=== PATIENT | male | born 1990 | race Caucasian/White ===

== ENCOUNTER 2017-03-16 18:14 | Emergency (ER) | payer SELFPAY ==
[~2017-03-16] VITALS: Ht 177.8 cm; Wt 70.0 kg
[~2017-03-16 18:14] MED LIST: PAXI20TA26 PO; TRAZ50TA78 PO
[2017-03-16 18:16] VITALS: BP 115/79; PULSE 84; RESP 16; TEMP 97.8; O2SAT 95; O2SAT 96
== END 2017-03-16 19:00 | disposition left against medical advice (07) ==
LOC: PHED 18:14
DX: R68.89 Other general symptoms and signs (principal)
CPT/HCPCS: 99281

== ENCOUNTER 2017-04-24 00:37 | Emergency (ER) | payer SELFPAY ==
[~2017-04-24] VITALS: Ht 180.3 cm; Wt 90.0 kg
[2017-04-24 00:39] VITALS: BP 152/95; PULSE 81; RESP 18; TEMP 98.2; O2SAT 99
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
[2017-04-24] MEDS ORDERED: IBUPROFEN 800 MG TAB PO ONE (01:00)
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
[2017-04-24] MEDS ORDERED: NAPR500 PO (01:57)
== END 2017-04-24 02:18 | disposition home or self-care (01) ==
LOC: NEPD 00:37
DX: S62.346A Nondisplaced fracture of base of fifth metacarpal bone, right hand, initial encounter for closed fracture (principal); Z72.0 Tobacco use; Z86.59 Personal history of other mental and behavioral disorders; Z87.19 Personal history of other diseases of the digestive system; W22.09XA Striking against other stationary object, initial encounter
CPT/HCPCS: 29125; 73130

== ENCOUNTER 2018-03-29 03:29 | Emergency (ER) | payer SELFPAY ==
[~2018-03-29] VITALS: Ht 177.8 cm; Wt 72.5 kg
[~2018-03-29 03:29] MED LIST changes: +NAPR500 PO; -PAXI20TA26 PO; -TRAZ50TA78 PO; +Z.0.NO CURRENT MEDS
[2018-03-29 03:34] VITALS: BP 126/72; PULSE 91; RESP 16; TEMP 99.3; O2SAT 96
[2018-03-29] MEDS ORDERED: BACT800T5 PO (03:57)
[2018-03-29] MEDS ORDERED: CLIN300C5 PO (03:57)
--- NOTE | 2018-03-29 03:59 | PD ---
HPI Chief Complaint: Skin Problem Time Seen by Provider: 03:55 Travel History International Travel<30 days: No Contact w/Intl Traveler<30days: No Traveled to known affect area: No History of Present Illness HPI 27-year-old male presents for evaluation of area of redness to the left arm. He reports that he recently relapsed on IV heroin. He reports for the past 2 weeks he has had some redness and pain at the site of the injection site. Pain is aching, mild, aggravated by palpation with no relieving factors. Denies any drainage. Denies any objective fevers but he has had occasional sweats. He reports that tomorrow he plans on going to rehab. He has no other complaints at this time. [facility] Past Medical History ADHD: Yes (BY HX) Autoimmune Disease: No Blood Disorders: No Anxiety: No Depression: No Cancer: No Cardiovascular Problems: No Diabetes: No Diminished Hearing: No Endocrine: No Genitourinary: No Hepatitis: Yes (C) Immune Disorder: No Musculoskeletal: No Neurologic: No Psychiatric: Yes (ADHD BY HX, AGGRESSION) Reproductive: No Respiratory: No Migraines: No Seizures: No Thyroid Disease: No Tetanus Vaccination: < 5 Years Past Surgical History Surgical History: No Previous Surgery AICD: No Appendectomy: No Arteriovenous Shunt: No Cholecystectomy: No Insulin Pump: No Joint Replacement: No Pacemaker: No Social History Alcohol Use: Yes Tobacco Use: Yes (1PPD) Substance Use: Yes (heroin, Cocaine) Allergies-Medications (Allergen,Severity, Reaction): Coded Allergies: cefepime (Unverified Allergy, Intermediate, RASH, 05/23/17) ceftaroline fosamil (Unverified Allergy, Intermediate, RASH, 05/23/17) Uncoded Allergies: CEFZOL (Allergy, Intermediate, UNKNOWN, 12/03/17) OPIATES (Adverse Reaction, Mild, 04/24/17) PT REQUESTS TO NOT HAVE OPIATES Reported Meds & Prescriptions Reported Meds & Active Scripts Active Naprosyn (Naproxen) 500 Mg Tab 500 Mg PO Q12HR PRN Reported No Current Meds (Miscellaneous Medication) Misc Review of Systems Except as stated in HPI: all other systems reviewed are Neg Physical Exam Narrative GENERAL: Well-developed well-nourished male no acute distress SKIN: Warm and dry. 2-3 cm area of erythema and induration to the left antecubital region without fluctuance. Needle track hatfield are noted. There is no drainage. HEAD: Atraumatic. Normocephalic. EYES: Pupils equal and round. No scleral icterus. No injection or drainage. ENT: No nasal bleeding or discharge. Mucous membranes pink and moist. NECK: Trachea midline. No JVD. CARDIOVASCULAR: Regular rate and rhythm. No murmur appreciated. RESPIRATORY: No accessory muscle use. Clear to auscultation. Breath sounds equal bilaterally. MUSCULOSKELETAL: No obvious deformities. Skin as noted above. NEUROLOGICAL: Awake and alert. No obvious cranial nerve deficits. Motor grossly within normal limits. Normal speech. Data Data Last Documented VS Vital Signs Date Time Temp Pulse Resp B/P (MAP) Pulse Ox O2 Delivery O2 Flow Rate FiO2 03/29/18 03:34 99.3 91 16 126/72 (90) 96 Orders Orders Clindamycin (Cleocin) (03/29/18 04:00) Sulfamet-Trimeth Ds 800-160 Mg (Bactrim (03/29/18 04:00) Ed Discharge Order (03/29/18 03:56) MDM Medical Decision Making Medical Screen Exam Complete: Yes Emergency Medical Condition: Yes Medical Record Reviewed: Yes Differential Diagnosis Cellulitis, abscess, lymphangitis Narrative Course Examination is consistent with cellulitis but there is no abscess formation. The patient will be started on clindamycin and Bactrim. Discussed signs and symptoms that would warrant returning to the emergency room. He is stable for discharge. Diagnosis Primary Impression: Cellulitis of left arm Additional Instructions: Medication as prescribed. Warm compresses several times a day 15 minutes at a time. Return for any new or worsening symptoms. Med/Other Pt SpecificInfo: Prescription(s) given Scripts Clindamycin (Clindamycin) 300 Mg Cap 300 MG PO TID for Infection for 10 Days, CAP 0 Refills Prov: Lester Galvin MD 03/29/18 Sulfamethoxazole-Trimethoprim (Bactrim DS) 800-160 Mg Tab 1 TAB PO BID for Infection, #20 TAB 0 Refills Prov: Lester Galvin MD 03/29/18 Disposition: 01 DISCHARGE HOME Condition: Stable Vladimir Arthur Mar 29, 2018 03:59
[2018-03-29] MEDS ORDERED: CLINDAMYCIN 150 MG CAP PO ONE (04:00)
[2018-03-29] MEDS ORDERED: SULFAMETHOXAZOLE-TRIMETHOPRIM DS 800-160 MG TAB PO ONE (04:00)
== END 2018-03-29 04:12 | disposition home or self-care (01) ==
LOC: NEPD 03:29
DX: L03.114 Cellulitis of left upper limb (principal); F14.90 Cocaine use, unspecified, uncomplicated; F11.90 Opioid use, unspecified, uncomplicated; F17.200 Nicotine dependence, unspecified, uncomplicated; F90.9 Attention-deficit hyperactivity disorder, unspecified type; Z86.19 Personal history of other infectious and parasitic diseases; Z88.8 Allergy status to other drugs, medicaments and biological substances
CPT/HCPCS: 99283

== ENCOUNTER 2018-08-09 15:11 | Inpatient (IN) ==
[2018-08-09] MEDS ORDERED: Piperacil/Tazo 4.5 GM Premix 4.5 GM/100 ML BAG IV.SIG ONE (18:08)
[2018-08-09] MEDS ORDERED: Acetaminophen 325 MG Tablet PO ONE (18:08)
[2018-08-09] MEDS ORDERED: Morphine Inj 4 MG, Morphine Inj 2 MG IV.PUSH ONE ×2 (18:10)
--- NOTE | 2018-08-09 18:12 | ED ---
HPI General Chief complaint: Skin/Abscess/Foreign Body Stated complaint: skin Time Seen by Provider: 08/09/18 17:55 Source: patient Mode of arrival: ambulatory Limitations: no limitations History of Present Illness HPI narrative: 27-year-old male with history of IV drug abuse here for evaluation of left arm pain and swelling. The patient reports recently injecting cocaine and heroin into this extremity and states that he missed his vein. Symptoms have been worsening over the last 4 days. Pain is severe, constant, worse with movements and palpation. No paresthesias. Triage vital signs show the patient is tachycardic and febrile. Related Data Home Medications Medication Instructions Recorded Confirmed No Known Home Medications 08/09/18 08/09/18 Allergies Allergy/AdvReac Type Severity Reaction Status Date / Time cefepime Allergy Intermediate RASH Verified 08/09/18 16:04 ceftaroline fosamil Allergy Intermediate RASH Verified 08/09/18 16:04 CEFZOL Allergy Intermediate Hives Uncoded 08/09/18 16:04 Review of Systems ROS: all other systems reviewed are negative [facility] Medical History Medical History Hepatitis-C (Acute) Social History Social History Substance History: Active Abuse Second Hand Smoke Exposure: Yes Smoking Status: Current some day smoker Tobacco Type: Cigarettes How Often Do You Have a Drink Containing Alcohol: Never Recent Travel in [facility] within the Last 8 Weeks: No Recent Out of Country Travel within the Last 8 Weeks: No Exam Narrative Exam Narrative: GENERAL: Well-developed, well-nourished, awake, alert, comfortable, no apparent distress. SKIN: Left forearm with moderate edema with overlying warmth and erythema with several scabs. The forearm is moderately tender. All compartments are supple. There is no crepitus. No red streaks. This area was evaluated using a bedside linear ultrasound probe by me and shows diffuse cobblestoning, no drainable fluid collections. There are scattered scabs throughout the patient' s entire body. HEAD: Atraumatic. Normocephalic. EYES: Pupils equal and round. No scleral icterus. No injection or drainage. ENT: Mucous membranes pink and dry. NECK: Trachea midline. No JVD. No nuchal rigidity. CARDIOVASCULAR: Tachycardic, rate 110, regular. Holosystolic murmur III/ present. RESPIRATORY: No accessory muscle use. Clear to auscultation. Breath sounds equal bilaterally. GASTROINTESTINAL: Abdomen soft, non-tender, nondistended. MUSCULOSKELETAL: Skin exam as above. The left upper extremity is neurovascularly intact. Normal range of motion in all joints and extremities. NEUROLOGICAL: Awake and alert. No obvious cranial nerve deficits. Motor grossly within normal limits. Normal speech. PSYCHIATRIC: Appropriate mood and affect; insight and judgment normal. Course Initial Documented Vital Signs Temperature 102.8 F H 08/09/18 16:01 Pulse Rate 93 H 08/09/18 16:01 Respiratory Rate 20 08/09/18 16:01 Blood Pressure 133/68 08/09/18 16:01 Pulse Oximetry 93 L 08/09/18 16:01 Last Documented Vital Signs Temperature 102.1 F H 08/09/18 16:03 Pulse Rate 86 08/09/18 16:03 Respiratory Rate 18 08/09/18 16:03 Blood Pressure 126/86 08/09/18 16:03 Pulse Oximetry 98 08/09/18 16:03 Medical Decision Making MDM Narrative Medical decision making narrative: Initial vital signs show the patient is tachycardic and febrile. He is normotensive. Sepsis protocol initiated. Procedure note: Bedside linear ultrasound: Using the linear ultrasound probe a bedside ultrasound was performed of the patient's left upper extremity and shows diffuse cobblestoning, no drainable fluid collections noted. Labs reviewed. Chest x-ray shows no acute cardiopulmonary disease. Left forearm x-ray shows no free air, no metallic foreign bodies. Patient was written for IV vancomycin and IV Zosyn. He has a harsh holosystolic murmur, and given history of IV drug abuse, could have endocarditis. He definitely has a significant area of left forearm cellulitis. A bedside ultrasound performed by ia does not show a drainable fluid collection at this time. He will be admitted for further treatment and evaluation of sepsis, cellulitis, r/o endocarditis. Case discussed with hospitalist Dr. Barone who will admit the patient to the hospitalist service. Medical Screen Exam Complete: Yes Emergency Medical Condition: Yes Differential Diagnosis Differential Diagnosis: Sepsis, bacteremia, cellulitis, abscess, necrotizing fasciitis, myositis, endocarditis, pneumonia Lab Data Result diagrams: 08/09/18 18:27 08/09/18 18:27 Lab Results 08/09/18 08/09/18 08/09/18 Range/Units 18:27 18:27 18:27 WBC 8.1 (4.0-11.0) th/mm3 RBC 4.43 L (4.50-5.90) mil/mm3 Hgb 13.7 (13.0-17.0) gm/dL Hct 38.5 L (39.0-51.0) % MCV 87.0 (80.0-100.0) fL MCH 30.9 (27.0-34.0) pg MCHC 35.5 (32.0-36.0) % RDW 13.1 (11.6-17.2) % Plt Count 114 L (150-450) th/mm3 MPV 10.2 (7.0-11.0) fL Neut % (Auto) 81.1 H (16.0-70.0) % Lymph % (Auto) 8.8 L (9.0-44.0) % Hoke % (Auto) 8.5 H (0.0-8.0) % Eos % (Auto) 1.3 (0.0-4.0) % Baso % (Auto) 0.3 (0.0-2.0) % Neut # (Auto) 6.5 (1.8-7.7) th/mm3 Lymph # (Auto) 0.7 L (1.0-4.8) th/mm3 Hoke # (Auto) 0.7 (0.0-0.9) th/mm3 Eos # (Auto) 0.1 (0.0-0.4) th/mm3 Baso # (Auto) 0.0 (0.0-0.2) th/mm3 WBC Differential . Differential Comment Auto diff final PT 11.4 (9.8-11.6) sec INR 1.1 Ratio APTT 39.0 H (23.4-31.7) sec Sodium 133 L (136-145) meq/L Potassium 4.1 (3.5-5.1) meq/L Chloride 97 L (98-107) meq/L Carbon Dioxide 28.4 (21.0-32.0) meq/L Anion Gap 8 (5-15) meq/L BUN 11 (7-18) mg/dL Creatinine 0.90 (0.60-1.30) mg/dL Estimated GFR Greater than 89 (>89) mL/min Random Glucose 119 H (74-106) mg/dL Lactic Acid (0.4-2.0) mmol/L Calcium 8.6 (8.5-10.1) mg/dL Magnesium 1.7 (1.5-2.5) mg/dL Total Bilirubin 1.6 H (0.2-1.0) mg/dL AST 47 H (15-37) U/L ALT 54 (12-78) U/L Alkaline Phosphatase 62 (45-117) U/L Total Creatine Kinase 358 H (39-308) U/L CK-MB (CK-2) 1.9 (0.5-3.6) ng/mL CK-MB (CK-2) % 0.5 (0.0-4.0) % Troponin I Less than 0.02 L (0.02-0.05) ng/mL Total Protein 7.1 (6.4-8.2) g/dL Albumin 3.1 L (3.4-5.0) g/dL 08/09/18 Range/Units 18:27 WBC (4.0-11.0) th/mm3 RBC (4.50-5.90) mil/mm3 Hgb (13.0-17.0) gm/dL Hct (39.0-51.0) % MCV (80.0-100.0) fL MCH (27.0-34.0) pg MCHC (32.0-36.0) % RDW (11.6-17.2) % Plt Count (150-450) th/mm3 MPV (7.0-11.0) fL Neut % (Auto) (16.0-70.0) % Lymph % (Auto) (9.0-44.0) % Hoke % (Auto) (0.0-8.0) % Eos % (Auto) (0.0-4.0) % Baso % (Auto) (0.0-2.0) % Neut # (Auto) (1.8-7.7) th/mm3 Lymph # (Auto) (1.0-4.8) th/mm3 Hoke # (Auto) (0.0-0.9) th/mm3 Eos # (Auto) (0.0-0.4) th/mm3 Baso # (Auto) (0.0-0.2) th/mm3 WBC Differential Differential Comment PT (9.8-11.6) sec INR Ratio APTT (23.4-31.7) sec Sodium (136-145) meq/L Potassium (3.5-5.1) meq/L Chloride (98-107) meq/L Carbon Dioxide (21.0-32.0) meq/L Anion Gap (5-15) meq/L BUN (7-18) mg/dL Creatinine (0.60-1.30) mg/dL Estimated GFR (>89) mL/min Random Glucose (74-106) mg/dL Lactic Acid 0.8 (0.4-2.0) mmol/L Calcium (8.5-10.1) mg/dL Magnesium (1.5-2.5) mg/dL Total Bilirubin (0.2-1.0) mg/dL AST (15-37) U/L ALT (12-78) U/L Alkaline Phosphatase (45-117) U/L Total Creatine Kinase (39-308) U/L CK-MB (CK-2) (0.5-3.6) ng/mL CK-MB (CK-2) % (0.0-4.0) % Troponin I (0.02-0.05) ng/mL Total Protein (6.4-8.2) g/dL Albumin (3.4-5.0) g/dL Imaging Data Radiologist's impression: Chest X-Ray 08/09/18 18:08 CONCLUSION: No acute cardiopulmonary disease. There is no evidence of pneumonia. Forearm X-Ray 08/09/18 18:12 CONCLUSION: No acute bony abnormality. Needle or other metallic fragment present in distal forearm. Discharge Plan Discharge Disposition Patient Disposition: 30 Still Patient Discharge Condition Condition: Stable Discharge Details Diagnosis: Sepsis, Cellulitis of forearm, left, Polysubstance abuse Physicians Team ED Provider: Ismael Castillo Primary Care Provider: Primary Care VikkiiShanta Rxs /Orders / Referrals /Forms Prescriptions: No Action No Known Home Medications RF: 0 Status ED Status: With Doctor
[2018-08-09] MEDS ORDERED: Sod Chloride 0.9% Inj 1,000 ML IV.SIG SCH ×2 (18:15→18:30)
[2018-08-09] MEDS ORDERED: Sod Chloride 0.9% Inj 800 ML IV.SIG SCH (18:15)
[2018-08-09] MEDS ORDERED: Vancomycin Inj 1 GM/200 ML PIGGYBACK IV.SIG SCH (19:00)
--- NOTE | 2018-08-09 19:08 | XR ---
EXAM DATE: 08/09/2018 6:41 PM EDT AGE/SEX: 27 years / Male INDICATIONS: Short of breath and fever. CLINICAL DATA: This is the patient's initial encounter. Patient reports that signs and symptoms have been present for 4 - 6 days and indicates a pain score of 0/10. MEDICAL/SURGICAL HISTORY: None. None. COMPARISON: None.. FINDINGS: A single AP view of the chest demonstrates the lungs to be symmetrically aerated without evidence of mass, infiltrate or effusion. The cardiomediastinal contours are unremarkable. Osseous structures a re intact. CONCLUSION: No acute cardiopulmonary disease. There is no evidence of pneumonia. Electronically signed by: Avtar Talbot MD 08/09/2018 7:07 PM EDT
[2018-08-09 19:12] LABS: Baso % (Auto) 0.3 % (0.0-2.0); Eos # (Auto) 0.1 th/mm3 (0.0-0.4); Eos % (Auto) 1.3 % (0.0-4.0); Hematocrit 38.5 % (39.0-51.0); Hemoglobin 13.7 gm/dL (13.0-17.0); Lymph # (Auto) 0.7 th/mm3 (1.0-4.8); Lymph % (Auto) 8.8 % (9.0-44.0); Mean Corpuscular HGB Conc 35.5 % (32.0-36.0); Mean Corpuscular Hemoglobin 30.9 pg (27.0-34.0); Mean Platelet Volume 10.2 fL (7.0-11.0); Mono # (Auto) 0.7 th/mm3 (0.0-0.9); Mono % (Auto) 8.5 % (0.0-8.0); Neut # (Auto) 6.5 th/mm3 (1.8-7.7); Neut % (Auto) 81.1 % (16.0-70.0); Platelet Count 114 th/mm3 (150-450); Red Blood Count 4.43 mil/mm3 (4.50-5.90); Red Cell Distribution Width 13.1 % (11.6-17.2); White Blood Count 8.1 th/mm3 (4.0-11.0)
--- NOTE | 2018-08-09 19:17 | XR ---
EXAM DATE: 08/09/2018 6:46 PM EDT AGE/SEX: 27 years / Male INDICATIONS: Inflammation on mid forearm. CLINICAL DATA: This is the patient's initial encounter. Patient reports that signs and symptoms have been present for 1 day and indicates a pain score of 5/10. MEDICAL/SURGICAL HISTORY: None. None. COMPARISON: No prior exams available for comparison. FINDINGS: No acute bony abnormality. Needle fragment present in soft tissues of distal forearm. Mild proximal f orearm swelling. CONCLUSION: No acute bony abnormality. Needle or other metallic fragment present in distal forearm. Electronically signed by: Suhail Bustillos MD 08/09/2018 7:16 PM EDT
[2018-08-09 19:19] LABS: INR 1.1 Ratio; Prothrombin Time 11.4 sec (9.8-11.6)
[2018-08-09 19:21] LABS: Alanine Aminotransferase 54 U/L (12-78); Albumin 3.1 g/dL (3.4-5.0); Anion Gap 8 meq/L (5-15); Aspartate Aminotransferase 47 U/L (15-37); Blood Urea Nitrogen 11 mg/dL (7-18); Calcium 8.6 mg/dL (8.5-10.1); Carbon Dioxide 28.4 meq/L (21.0-32.0); Chloride 97 meq/L (98-107); Glomerular Filtration Rate Greater Than 89 mL/min (>89); Glucose,Random 119 mg/dL (74-106); Magnesium 1.7 mg/dL (1.5-2.5); Potassium 4.1 meq/L (3.5-5.1); Sodium 133 meq/L (136-145)
[2018-08-09 19:25] LABS: Alkaline Phosphatase 62 U/L (45-117); Creatine Kinase 358 U/L (39-308); Total Protein 7.1 g/dL (6.4-8.2)
[2018-08-09 19:38] LABS: CKMB Percent 0.5 % (0.0-4.0); Creatine Kinase MB 1.9 ng/mL (0.5-3.6)
[2018-08-09] MEDS ORDERED: Vancomycin Consult Pharmacy OTHER PRN (19:39)
[2018-08-09] MEDS ORDERED: Acetaminophen 325 MG Tablet PO PRN (19:41)
[2018-08-09] MEDS ORDERED: Bisacodyl 10 MG Supp RECTAL PRN (19:41)
--- NOTE | 2018-08-09 19:43 | P.HPIM ---
History of Present Illness Primary Care Physician: No Primary Care Physician History of Present Illness: This is a 27-year-old male with a PMH of Hepatitis C, Tobacco Abuse and IVDU who presented to the ER with complaints of left arm pain and swelling x4 days. States he injected Cocaine and Heroin to [facility] 4 days ago and thinks he missed the vein. Notes progressive pain, redness and swelling. Pain is constant, moderate to severe, 8/10, non-radiating. Also notes fever/chills and c/o chest pain-substernal, sharp, non-radiating. On arrival, 33/68, HR 93, O2 RA, Temp 102.8. CBC essentially unremarkable except for platelets 114. INR 1.1. Chemistry unremarkable. Lactic acid 0.8. Troponin negative. CPK 358. CXR with no acute findings. Forearm X-ray no acute finding, no needle or metallic fragment present. S/p Vanc/Zosyn in ER. - Diagnosis (1) Cellulitis of forearm, left (2) Chest pain (3) IVDU (intravenous drug user) (4) Rhabdomyolysis (5) Thrombocytopenia Review of Systems PAST FAMILY HISTORY: Reviewed. No h/o DM or CAD All other systems reviewed negative except as stated [facility] - History History Provided By: Patient - Medical History Medical History: Medical History (Last Updated 08/09/18 @ 18:44 by Jose Antonio Carpenter) Hepatitis-C - Tobacco History Second Hand Smoke Exposure: Yes Tobacco Use In Past 30 Days: Yes Smoking Status: Current some day smoker Tobacco Type: Cigarettes - Alcohol History How Often Do You Have a Drink Containing Alcohol: Never - Substance Use History Substance History: Active Abuse - Substance Use Type Crack/Cocaine Status: Active Route Used: By Mouth Reason for Use: Calm Down - Travel History Recent Travel in the [place] Within the Last 8 Weeks: No Recent Travel Out of the Country Within the Last 8 Weeks: No - Immunization History Tetanus Immunization: Unsure Medications and Allergies Active Medications: Active Medications Sodium Chloride (Ns Inj) 1,000 mls @ 0 mls/hr IV.SIG .Q0M [facility] Last Admin: 08/09/18 18:21 Dose: 999 mls/hr Sodium Chloride (Ns Inj) 800 mls @ 0 mls/hr IV.SIG .Q0M [facility] Last Infusion: 08/09/18 19:39 Dose: Infused Vancomycin/Sodium Chloride (Vancomycin Inj) 1 gm in 200 mls @ 200 mls/hr IV.SIG REWRITER [facility] Allergies Allergy/AdvReac Type Severity Reaction Status Date / Time cefepime Allergy Intermediate RASH Verified 08/09/18 16:04 ceftaroline fosamil Allergy Intermediate RASH Verified 08/09/18 16:04 CEFZOL Allergy Intermediate Hives Uncoded 08/09/18 16:04 Home Medications Medication Instructions Recorded Confirmed Type No Known Home Medications 08/09/18 08/09/18 History Exam Vital signs: Vital Signs 08/09/18 16:01 08/09/18 16:03 Temperature 102.8 F H 102.1 F H Pulse Rate 93 H 86 Respiratory Rate 20 18 Blood Pressure 133/68 126/86 Pulse Oximetry 93 L 98 Intake & Output 08/09/18 08/09/18 08/10/18 06:59 18:59 06:59 Intake Total 900 / 900 Balance 900 / 900 Weight 77.111 kg Intake: IV 900 / 900 Zosyn 4.5 GM Premix 4.5 gm In 100 / 100 100 ml @ 200 mls/hr IV.SIG ONCE ONE Rx#:[id number] NS Inj 800 ML @ Wide Open IV. 800 / 800 SIG .Q0M [facility] Rx#:[id number] Narrative: PE: GENERAL: Young white male in no acute distress. SKIN: Focused skin assessment warm and dry. HEENT: PERRLA, EOMI. No scleral icterus or conjunctival pallor. No lid lag or facial droop. CARDIOVASCULAR: Regular rate and rhythm. +holosystolic murmur. No chest tenderness to palpation. RESPIRATORY: No obvious rhonchi or wheezing. Clear to auscultation. Breath sounds equal bilaterally. GASTROINTESTINAL: Abdomen soft, non-tender, nondistended. BS normal. MUSCULOSKELETAL: Extremities without clubbing, cyanosis, or edema. No obvious deformities. Left forearm w/ multiple scabs, +erythema/edema, +tenderness to palpation. NEUROLOGICAL: Awake, alert and oriented x4. No focal neurologic deficits. Moving both upper and lower extremities spontaneously. PSYCHIATRIC: Appropriate mood and affect. Insight and judgment normal. Results - Labs CBC & Chem 7: 08/09/18 18:27 08/09/18 18:27 Labs: Short CBC 08/09/18 Range/Units 18:27 WBC 8.1 (4.0-11.0) th/mm3 Hgb 13.7 (13.0-17.0) gm/dL Hct 38.5 L (39.0-51.0) % Plt Count 114 L (150-450) th/mm3 BMP 08/09/18 18:27 Sodium 133 L Potassium 4.1 Chloride 97 L Carbon Dioxide 28.4 BUN 11 Creatinine 0.90 Calcium 8.6 Cardiac Enzymes 08/09/18 Range/Units 18:27 Total Creatine Kinase 358 H (39-308) U/L CK-MB (CK-2) 1.9 (0.5-3.6) ng/mL Troponin I Less than 0.02 L (0.02-0.05) ng/mL Liver Function 08/09/18 Range/Units 18:27 Total Bilirubin 1.6 H (0.2-1.0) mg/dL AST 47 H (15-37) U/L ALT 54 (12-78) U/L Alkaline Phosphatase 62 (45-117) U/L Albumin 3.1 L (3.4-5.0) g/dL - Imaging Impressions Chest X-Ray 08/09/18 18:08 CONCLUSION: No acute cardiopulmonary disease. There is no evidence of pneumonia. Forearm X-Ray 08/09/18 18:12 CONCLUSION: No acute bony abnormality. Needle or other metallic fragment present in distal forearm. Caprini VTE Risk Assessment Caprini VTE Risk Assessment: No/Low Risk (score <= 1) Caprini Risk Assessment Model: Point Value = 1 Point Value = 2 Point Value = 3 Point Value = 5 Age 41-60 Minor surgery BMI > 25 kg/m2 Swollen legs Varicose veins or History of unexplained or recurrent spontaneous Oral contraceptives or hormone replacement Sepsis (< 1 month) Serious lung disease, including pneumonia (< 1 month) Abnormal pulmonary function Acute myocardial infarction Congestive heart failure (< 1 month) History of inflammatory bowel disease Medical patient at bed rest Age 61-74 Arthroscopic surgery Major open surgery (> 45 min) Laparoscopic surgery (> 45 min) Malignancy Confined to bed (> 72 hours) Immobilizing plaster cast Central venous access Age >= 75 History of VTE Family history of VTE Factor V Leiden Prothrombin [id number] Lupus anticoagulant Anticardiolipin antibodies Elevated serum homocysteine Heparin-induced thrombocytopenia Other congenital or acquired thrombophilia Stroke (< 1 month) Elective arthroplasty Hip, pelvis, or leg fracture Acute spinal cord injury (< 1 month) Prophylaxis Regimen: Total Risk Factor Score Risk Level Prophylaxis Regimen 0-1 Low Early ambulation 2 Moderate Order ONE of the following: *Sequential Compression Device (SCD) *Heparin 5000 units SQ BID 3-4 Higher Order ONE of the following medications: *Heparin 5000 units SQ TID *Enoxaparin/Lovenox 40 mg SQ daily (WT < 150 kg, CrCl > 30 mL/min) *Enoxaparin/Lovenox 30 mg SQ daily (WT < 150 kg, CrCl > 10-29 mL/min) *Enoxaparin/Lovenox 30 mg SQ BID (WT < 150 kg, CrCl > 30 mL/min) AND/OR *Sequential Compression Device (SCD) 5 or more Highest Order ONE of the following medications: *Heparin 5000 units SQ TID (Preferred with Epidurals) *Enoxaparin/Lovenox 40 mg SQ daily (WT < 150 kg, CrCl > 30 mL/min) *Enoxaparin/Lovenox 30 mg SQ daily (WT < 150 kg, CrCl > 10-29 mL/min) *Enoxaparin/Lovenox 30 mg SQ BID (WT < 150 kg, CrCl > 30 mL/min) AND *Sequential Compression Device (SCD) Assessment and Plan - Assessment (1) Cellulitis of forearm, left Code(s): L03.114 - Cellulitis of left upper limb Status: Acute (2) Chest pain Code(s): R07.9 - Chest pain, unspecified Status: Acute (3) IVDU (intravenous drug user) Code(s): F19.90 - Other psychoactive substance use, unspecified, uncomplicated Status: Acute (4) Rhabdomyolysis Code(s): M62.82 - Rhabdomyolysis Status: Acute (5) Thrombocytopenia Code(s): D69.6 - Thrombocytopenia, unspecified Status: Acute - Plan A/P: 1. Cellulitis: LUE. S/p IVDU w/ injection of Cocaine/Heroin 4 days ago, worsening pain/swelling. Forearm X-ray w/ no acute findings, images reviewed. S/p Vanc/Zosyn in ER, will continue w/ IV Abx, follow up cultures. 2. Chest Pain: h/o IVDU, +murmur on exam w/ c/o chest pain, concern for endocarditis. Initial trop negative, will check serial cardiac enzymes to eval for ischemia/strain. Check Echo to eval for vegetations. 3. Rhabdo: CPK 358, likely related to recent cocaine use, IVF for hydration, check repeat CPK for trend. 4. Thrombocytopenia: Platelets 114, previously normal on 02/13/2008. Monitor closely for bleeding, repeat labs in am. 5. IVDU: Ongoing, w/ Cocaine/Heroin, pt counselled, Ativan prn for withdrawal/ agitation. 6. DVT Prophylaxis: SCD/Teds 7. Social work for d/c planning as needed. 8. Case discussed w/ ER physician at length, labs/records/imaging reviewed by me.
[2018-08-09] MEDS ORDERED: Vancomycin Inj 1,000 MG in Sodium Chlor 0.9% Inj 250 ML IV.SIG ONE (20:00)
[2018-08-09] MEDS: Senna/Docusate Sodium 8.6/50 MG Tablet PO SCH (22:13)
[2018-08-09 22:16] LABS: Bilirubin,Urine Negative (Negative); Clarity,Urine Clear (Clear); Color,Urine Yellow (Yellw/Straw); Glucose,Urine (UA) Negative (Negative); Leukocyte Esterase,Urine Trace (Negative); Mucus,Urine Few /lpf (Occasional); Nitrite,Urine Negative (Negative); Specific Gravity,Urine 1.002 (1.002-1.035); Urobilinogen,Urine 4 or Greater mg/dL (Less than 2)
[2018-08-09] MEDS: Sod Chloride 0.9% Inj 1,000 ML IV.CONT SCH (22:54)
[2018-08-10] MEDS: Piperacil/Tazo 4.5 GM Premix 4.5 GM/100 ML BAG IV.SIG SCH ×4 (01:07→17:51)
[2018-08-10] MEDS: Vancomycin Inj 1,250 MG in Sodium Chlor 0.9% Inj 250 ML IV.SIG SCH ×3 (05:47→19:52)
[2018-08-10] MEDS: Sod Chloride 0.9% Inj 1,000 ML IV.CONT SCH ×2 (05:50→19:56)
[2018-08-10 07:05] LABS: Alanine Aminotransferase 40 U/L (12-78); Albumin 2.3 g/dL (3.4-5.0); Alkaline Phosphatase 50 U/L (45-117); Anion Gap 7 meq/L (5-15); Aspartate Aminotransferase 37 U/L (15-37); Blood Urea Nitrogen 8 mg/dL (7-18); Calcium 7.6 mg/dL (8.5-10.1); Carbon Dioxide 25.7 meq/L (21.0-32.0); Chloride 105 meq/L (98-107); Creatine Kinase 191 U/L (39-308); Glomerular Filtration Rate Greater Than 89 mL/min (>89); Glucose,Random 97 mg/dL (74-106); Potassium 3.8 meq/L (3.5-5.1); Sodium 138 meq/L (136-145); Total Protein 5.7 g/dL (6.4-8.2)
[2018-08-10] MEDS: Senna/Docusate Sodium 8.6/50 MG Tablet PO SCH ×2 (09:20→20:29)
[2018-08-10] MEDS ORDERED: Morphine Sulfate Inj 2 MG/ML Vial IV.PUSH PRN (11:42)
[2018-08-10] MEDS ORDERED: Naloxone Inj 0.4 MG/ML Vial IV.PUSH PRN (11:42)
[2018-08-10] MEDS ORDERED: Morphine Inj 4 MG/ML Vial IV.PUSH PRN ×2 (11:42)
[2018-08-10] MEDS ORDERED: Vancomycin Consult Pharmacy 1 EACH OTHER SCH (11:45)
--- NOTE | 2018-08-10 11:45 | P.PNIM ---
Subjective Interval history: This is a 27-year-old male with a PMH of Hepatitis C, Tobacco Abuse and IVDU who presented to the ER with complaints of left arm pain and swelling x4 days. States he injected Cocaine and Heroin to [facility] 4 days ago and thinks he missed the vein. Notes progressive pain, redness and swelling. Pain is constant, moderate to severe, 8/10, non-radiating. Also notes fever/chills and c/o chest pain-substernal, sharp, non-radiating. On arrival, 33/68, HR 93, O2 RA, Temp 102.8. CBC essentially unremarkable except for platelets 114. INR 1.1. Chemistry unremarkable. Lactic acid 0.8. Troponin negative. CPK 358. CXR with no acute findings. Forearm X-ray no acute finding, no needle or metallic fragment present. S/p Vanc/Zosyn in ER. 112 COMPLAINS OF PAIN ALL OVER DW RN AND PT AND CM NEEDS ECHO AM LABS Adjust pain medications Pharmacy to help regarding the vancomycin dosing Echo is pending Pain control and withdrawal medication Physical Exam Vital signs: Vital Signs 08/09/18 16:01 08/09/18 16:03 08/09/18 19:00 Temperature 102.8 F H 102.1 F H Pulse Rate 93 H 86 68 Respiratory Rate 20 18 16 Blood Pressure 133/68 126/86 104/59 L Pulse Oximetry 93 L 98 98 08/09/18 20:50 08/09/18 21:55 08/09/18 23:24 Temperature 98.9 F 99.5 F Pulse Rate 68 70 71 Respiratory Rate 18 18 14 Blood Pressure 101/52 L 94/49 L 101/51 L Pulse Oximetry 98 100 98 08/10/18 04:00 08/10/18 08:00 08/10/18 09:47 Temperature 100.7 F H 99.0 F Pulse Rate 75 68 63 Respiratory Rate 16 16 18 Blood Pressure 99/51 L 102/51 L 102/54 L Pulse Oximetry 95 97 Intake & Output 08/09/18 08/10/18 08/10/18 18:59 06:59 18:59 Intake Total 4350 / 4350 262.5 / 262.5 Balance 4350 / 4350 262.5 / 262.5 Weight 77.111 kg 77.111 kg Intake: IV 4350 / 4350 262.5 / 262.5 NS Inj 1,000 ML @ 100 mls/hr IV 1000 / 1000 .CONT .Q10H [facility] Rx#:[id number] Zosyn 4.5 GM Premix 4.5 gm In 300 / 300 100 ml @ 200 mls/hr IV.SIG Q6H [facility] Rx#:[id number] NS Inj 1,000 ML @ Wide Open IV. 2800 / 2800 SIG .Q0M [facility] Rx#:[id number] Vancomycin Inj 1,000 MG In NS 250 / 250 Inj 250 ML @ 250 mls/hr IV.SIG ONCE ONE Rx#:[id number] Vancomycin Inj 1,250 MG In NS 262.5 / 262.5 Inj 250 ML @ 250 mls/hr IV.SIG Q8H [facility] Rx#:[id number] Other: Date of Last Bowel Movement 08/08/18 Weight On Admission 77.111 kg Narrative: PE: GENERAL: Young white male in no acute distress. SKIN: Focused skin assessment warm and dry. HEENT: PERRLA, EOMI. No scleral icterus or conjunctival pallor. No lid lag or facial droop. CARDIOVASCULAR: Regular rate and rhythm. +holosystolic murmur. No chest tenderness to palpation. RESPIRATORY: No obvious rhonchi or wheezing. Clear to auscultation. Breath sounds equal bilaterally. GASTROINTESTINAL: Abdomen soft, non-tender, nondistended. BS normal. MUSCULOSKELETAL: Extremities without clubbing, cyanosis, or edema. No obvious deformities. Left forearm w/ multiple scabs, +erythema/edema, +tenderness to palpation. NEUROLOGICAL: Awake, alert and oriented x4. No focal neurologic deficits. Moving both upper and lower extremities spontaneously. PSYCHIATRIC: Appropriate mood and affect. Insight and judgment normal. Results - Labs CBC & Chem 7: 08/09/18 18:27 08/10/18 06:22 Laboratory Results - last 24 hr 08/09/18 08/09/18 08/09/18 18:27 18:27 18:27 WBC 8.1 RBC 4.43 L Hgb 13.7 Hct 38.5 L MCV 87.0 MCH 30.9 MCHC 35.5 RDW 13.1 Plt Count 114 L MPV 10.2 Neut % (Auto) 81.1 H Lymph % (Auto) 8.8 L Drew % (Auto) 8.5 H Eos % (Auto) 1.3 Baso % (Auto) 0.3 Neut # (Auto) 6.5 Lymph # (Auto) 0.7 L Drew # (Auto) 0.7 Eos # (Auto) 0.1 Baso # (Auto) 0.0 WBC Differential . Differential Comment Auto diff final PT 11.4 INR 1.1 APTT 39.0 H Sodium 133 L Potassium 4.1 Chloride 97 L Carbon Dioxide 28.4 Anion Gap 8 BUN 11 Creatinine 0.90 Estimated GFR Greater than 89 Random Glucose 119 H Lactic Acid Calcium 8.6 Magnesium 1.7 Total Bilirubin 1.6 H AST 47 H ALT 54 Alkaline Phosphatase 62 Total Creatine Kinase 358 H CK-MB (CK-2) 1.9 CK-MB (CK-2) % 0.5 Troponin I Less than 0.02 L Total Protein 7.1 Albumin 3.1 L Urine Color Urine Clarity Urine pH Ur Specific [place] Urine Protein Urine Glucose (UA) Urine Ketones Urine Occult Blood Urine Nitrate Urine Bilirubin Urine Urobilinogen Ur Leukocyte Esterase Urine RBC Urine WBC Urine Mucus Micro UA Comment Ur Microscopic Review Urine Culture Comments 08/09/18 08/09/18 08/10/18 18:27 21:50 01:15 WBC RBC Hgb Hct MCV MCH MCHC RDW Plt Count MPV Neut % (Auto) Lymph % (Auto) Drew % (Auto) Eos % (Auto) Baso % (Auto) Neut # (Auto) Lymph # (Auto) Drew # (Auto) Eos # (Auto) Baso # (Auto) WBC Differential Differential Comment PT INR APTT Sodium Potassium Chloride Carbon Dioxide Anion Gap BUN Creatinine Estimated GFR Random Glucose Lactic Acid 0.8 Calcium Magnesium Total Bilirubin AST ALT Alkaline Phosphatase Total Creatine Kinase CK-MB (CK-2) CK-MB (CK-2) % Troponin I Less than 0.02 L Total Protein Albumin Urine Color Yellow Urine Clarity Clear Urine pH 6.0 Ur Specific [place] 1.002 Urine Protein Negative Urine Glucose (UA) Negative Urine Ketones Negative Urine Occult Blood Negative Urine Nitrate Negative Urine Bilirubin Negative Urine Urobilinogen 4 or greater Ur Leukocyte Esterase Trace H Urine RBC Less than 1 Urine WBC 1 Urine Mucus Few H Micro UA Comment Culture not ind Ur Microscopic Review Not Reportable Urine Culture Comments Culture not ind 08/10/18 06:22 WBC RBC Hgb Hct MCV MCH MCHC RDW Plt Count MPV Neut % (Auto) Lymph % (Auto) Drew % (Auto) Eos % (Auto) Baso % (Auto) Neut # (Auto) Lymph # (Auto) Drew # (Auto) Eos # (Auto) Baso # (Auto) WBC Differential Differential Comment PT INR APTT Sodium 138 Potassium 3.8 Chloride 105 D Carbon Dioxide 25.7 Anion Gap 7 BUN 8 Creatinine 0.77 Estimated GFR Greater than 89 Random Glucose 97 Lactic Acid Calcium 7.6 L D Magnesium Total Bilirubin 1.1 H AST 37 ALT 40 Alkaline Phosphatase 50 Total Creatine Kinase 191 CK-MB (CK-2) CK-MB (CK-2) % Troponin I Less than 0.02 L Total Protein 5.7 L D Albumin 2.3 L D Urine Color Urine Clarity Urine pH Ur Specific [place] Urine Protein Urine Glucose (UA) Urine Ketones Urine Occult Blood Urine Nitrate Urine Bilirubin Urine Urobilinogen Ur Leukocyte Esterase Urine RBC Urine WBC Urine Mucus Micro UA Comment Ur Microscopic Review Urine Culture Comments Microbiology 08/09/18 18:27 Blood - Peripheral Aerobic Blood Culture - Preliminary No growth in 1 day 08/09/18 18:27 Blood - Peripheral Anaerobic Blood Culture - Preliminary No growth in 1 day 08/09/18 18:27 Blood - Peripheral Aerobic Blood Culture - Preliminary No growth in 1 day 08/09/18 18:27 Blood - Peripheral Anaerobic Blood Culture - Preliminary No growth in 1 day - Imaging Impressions Chest X-Ray 08/09/18 18:08 CONCLUSION: No acute cardiopulmonary disease. There is no evidence of pneumonia. Forearm X-Ray 08/09/18 18:12 CONCLUSION: No acute bony abnormality. Needle or other metallic fragment present in distal forearm. Assessment and Plan - Assessment (1) Cellulitis of forearm, left Code(s): L03.114 - Cellulitis of left upper limb Status: Acute (2) Chest pain Code(s): R07.9 - Chest pain, unspecified Status: Acute (3) IVDU (intravenous drug user) Code(s): F19.90 - Other psychoactive substance use, unspecified, uncomplicated Status: Acute (4) Rhabdomyolysis Code(s): M62.82 - Rhabdomyolysis Status: Acute (5) Thrombocytopenia Code(s): D69.6 - Thrombocytopenia, unspecified Status: Acute - Plan 1. Cellulitis: LUE. S/p IVDU w/ injection of Cocaine/Heroin 4 days ago, worsening pain/swelling. Forearm X-ray w/ no acute findings, images reviewed. S/p Vanc/Zosyn in ER, will continue w/ IV Abx, follow up cultures. 2. Chest Pain: h/o IVDU, +murmur on exam w/ c/o chest pain, concern for endocarditis. Initial trop negative, will check serial cardiac enzymes to eval for ischemia/strain. Check Echo to eval for vegetations. 3. Rhabdo: CPK 358, likely related to recent cocaine use, IVF for hydration, check repeat CPK for trend. 4. Thrombocytopenia: Platelets 114, previously normal on 02/13/2008. Monitor closely for bleeding, repeat labs in am. 5. IVDU: Ongoing, w/ Cocaine/Heroin, pt counselled, Ativan prn for withdrawal/ agitation. 6. DVT Prophylaxis: SCD/Teds Increased pain control Continue on Ativan and Percocets and morphine for pain Await echocardiogram Code Status: FULL CODE Discussed Condition With: RN AND PT AND CM Discharge Planning: WILL MAKE A FULL ADMIT
--- NOTE | 2018-08-10 17:22 | ECHRPT ---
Indication: SEPSIS ENDOCARDITIS CONCLUSIONS The left ventricular systolic function is normal with an estimated ejection fraction in the range of 55-60%. Trace mitral valve regurgitation. Mild pulmonary valve regurgitation. BP: / HR: Rhythm: MEASUREMENTS (Male / Female) Normal Values Technical Quality: 2D ECHO LV Diastolic Diameter PLAX 4.8 cm 4.2 - 5.9 / 3.9 - 5.3 cm LV Systolic Diameter PLAX 3.5 cm IVS Diastolic Thickness 1.1 cm 0.6 - 1.0 / 0.6 - 0.9 cm LVPW Diastolic Thickness 0.7 cm 0.6 - 1.0 / 0.6 - 0.9 cm LV Relative Wall Thickness 0.4 RV Internal Dim ED PLAX 2.5 cm LA Systolic Diameter LX 4.1 cm 3.0 - 4.0 / 2.7 - 3.8 cm DOPPLER AV Peak Velocity 163.0 cm/s AV Peak Gradient 10.6 mmHg LVOT Peak Velocity 116.0 cm/s LVOT Peak Gradient 5.4 mmHg Mitral E Point Velocity 98.1 cm/s Mitral A Point Velocity 67.3 cm/s Mitral E to A Ratio 1.5 TR Peak Velocity 144.0 cm/s TR Peak Gradient 8.3 mmHg Right Atrial Pressure 5.0 mmHg Pulmonary Artery Systolic Pressu 13.3 mmHg Right Ventricular Systolic Press 13.3 mmHg FINDINGS LEFT VENTRICLE Normal left ventricular size. Wall thickness is normal. The left ventricular systolic function is normal with an estimated ejection fraction in the range of 55-60%. RIGHT VENTRICLE Normal right ventricular size and systolic function. LEFT ATRIUM The left atrial size is mildly dilated. RIGHT ATRIUM The right atrial size is normal. ATRIAL SEPTUM Atrial septal aneurysm is present (benign finding). No atrial level shunt is demonstrated by color flow Doppler interrogation. AORTA The aortic root and proximal ascending aorta are normal in size on limited imaging. MITRAL VALVE Structurally normal mitral valve. No mitral valve stenosis. Trace mitral valve regurgitation. AORTIC VALVE Trileaflet aortic valve. No aortic valve stenosis or regurgitation. TRICUSPID VALVE Structurally normal tricuspid valve. No tricuspid valve stenosis or regurgitation. PULMONARY VALVE Mild pulmonary valve regurgitation. VESSELS The inferior vena cava is normal in size. PERICARDIUM No pericardial effusion. Julio Cesar Marina DO (Electronically Signed) Final Date:10 August 2018 17:21
--- NOTE | 2018-08-10 19:32 | ECG ---
Date Performed: 08/09/2018 Time Performed: 19:09:16 PTAGE: 27 years EKG: Sinus rhythm [place] Nonspecific intraventricular conduction delay BORDERLINE ECG NO PREVIOUS TRACING DOCTOR: Chavez Oviedo Interpretating Date/Time 08/10/2018 19:31:22
--- NOTE | 2018-08-10 19:33 | ECG ---
Date Performed: 08/10/2018 Time Performed: 01:19:14 PTAGE: 27 years EKG: Sinus rhythm Slight Nonspecific intraventricular conduction delay ABNORMAL ECG PREVIOUS TRACING :08/09/2018 @19.09 Since the previous tracing, no significant change noted DOCTOR: Chavez Oviedo Interpretating Date/Time 08/10/2018 19:32:44
--- NOTE | 2018-08-10 19:35 | ECG ---
Date Performed: 08/10/2018 Time Performed: 05:57:04 PTAGE: 27 years EKG: Normal Sinus Rhthm slight Nonspecific intraventricular conduction delay PREVIOUS TRACING :08/10/2018 @01.19 Since the previous tracing, no significant change note d DOCTOR: Chavez Oviedo Interpretating Date/Time 08/10/2018 19:34:16
[2018-08-10] MEDS ORDERED: Sodium Chloride 0.9% 2 ML Flush PRN IV.FLUSH (23:56)
[2018-08-11] MEDS: Piperacil/Tazo 4.5 GM Premix 4.5 GM/100 ML BAG IV.SIG SCH ×5 (00:08→23:11)
[2018-08-11] MEDS: Sod Chloride 0.9% Inj 1,000 ML IV.CONT SCH ×3 (01:52→23:11)
[2018-08-11] MEDS ORDERED: Pharmacy Ordered Lab Info OTHER ONE (03:45)
[2018-08-11] MEDS: Vancomycin Inj 1,250 MG in Sodium Chlor 0.9% Inj 250 ML IV.SIG SCH ×3 (04:54→19:21)
[2018-08-11] MEDS: Senna/Docusate Sodium 8.6/50 MG Tablet PO SCH ×2 (10:31→20:00)
[2018-08-11] MEDS: Sodium Chloride 0.9% 2 ML Flush BID IV.FLUSH SCH ×2 (10:31→20:00)
--- NOTE | 2018-08-11 10:36 | P.PNIM ---
Subjective Interval history: This is a 27-year-old male with a PMH of Hepatitis C, Tobacco Abuse and IVDU who presented to the ER with complaints of left arm pain and swelling x4 days. States he injected Cocaine and Heroin to [facility] 4 days ago and thinks he missed the vein. Notes progressive pain, redness and swelling. Pain is constant, moderate to severe, 8/10, non-radiating. Also notes fever/chills and c/o chest pain-substernal, sharp, non-radiating. On arrival, 33/68, HR 93, O2 RA, Temp 102.8. CBC essentially unremarkable except for platelets 114. INR 1.1. Chemistry unremarkable. Lactic acid 0.8. Troponin negative. CPK 358. CXR with no acute findings. Forearm X-ray no acute finding, no needle or metallic fragment present. S/p Vanc/Zosyn in ER. 11-2 COMPLAINS OF PAIN ALL OVER DW RN AND PT AND CM NEEDS ECHO AM LABS Adjust pain medications Pharmacy to help regarding the vancomycin dosing Echo is pending Pain control and withdrawal medication 113 REFUSED LABS PULLED OUT IV NEEDS NEW IV AND ANTIBIOTICS ECHO WAS STABLE AM LABS CONTINUE SAME I need the patient's labs to be able to make decisions as to what is improving or not and he has refused those so once we get those we can make more determination as to a course of action Physical Exam Vital signs: Vital Signs 08/10/18 12:00 08/10/18 16:00 08/10/18 19:14 Temperature 98.2 F 98.2 F 98.1 F Pulse Rate 72 59 L 64 Respiratory Rate 16 18 16 Blood Pressure 107/55 L 90/50 L 93/54 L Pulse Oximetry 100 99 98 08/10/18 23:54 08/11/18 04:00 Temperature 98.1 F 98 F Pulse Rate 62 65 Respiratory Rate 17 17 Blood Pressure 93/55 L 94/58 L Pulse Oximetry 99 99 Intake & Output 08/10/18 08/11/18 08/11/18 18:59 06:59 18:59 Intake Total 1325.0 / 1325.0 1462.5 / 1462.5 Output Total 1450 / 1450 Balance 1325.0 / 1325.0 12.5 / 12.5 Intake: IV 725.0 / 725.0 1462.5 / 1462.5 NS Inj 1,000 ML @ 100 mls/hr IV 1000 / 1000 .CONT .Q10H [facility] Rx#:[id number] Zosyn 4.5 GM Premix 4.5 gm In 200 / 200 200 / 200 100 ml @ 200 mls/hr IV.SIG Q6H [facility] Rx#:[id number] Vancomycin Inj 1,250 MG In NS 525.0 / 525.0 262.5 / 262.5 Inj 250 ML @ 250 mls/hr IV.SIG Q8H [facility] Rx#:[id number] Oral 600 / 600 Output: Urine 1450 / 1450 Other: # Voids 3 2 1 Narrative: PE: GENERAL: Young white male in no acute distress. Multiple tattoos on body SKIN: Focused skin assessment warm and dry. Multiple track hatfield on arms HEENT: PERRLA, EOMI. No scleral icterus or conjunctival pallor. No lid lag or facial droop. CARDIOVASCULAR: Regular rate and rhythm. +holosystolic murmur. No chest tenderness to palpation. RESPIRATORY: No obvious rhonchi or wheezing. Clear to auscultation. Breath sounds equal bilaterally. GASTROINTESTINAL: Abdomen soft, non-tender, nondistended. BS normal. MUSCULOSKELETAL: Extremities without clubbing, cyanosis, or edema. No obvious deformities. Left forearm w/ multiple scabs, +erythema/edema, +tenderness to palpation. NEUROLOGICAL: Awake, alert and oriented x4. No focal neurologic deficits. Moving both upper and lower extremities spontaneously. PSYCHIATRIC: Appropriate mood and affect. Insight and judgment normal. Results - Labs CBC & Chem 7: 08/09/18 18:27 08/10/18 06:22 Microbiology 08/09/18 18:27 Blood - Peripheral Aerobic Blood Culture - Preliminary No growth in 1 day 08/09/18 18:27 Blood - Peripheral Anaerobic Blood Culture - Preliminary Staphylococcus aureus 08/09/18 18:27 Blood - Peripheral Aerobic Blood Culture - Preliminary gram positive cocci 08/09/18 18:27 Blood - Peripheral Anaerobic Blood Culture - Preliminary No growth in 1 day - Imaging ITS Impressions Chest X-Ray 08/09/18 18:08 CONCLUSION: No acute cardiopulmonary disease. There is no evidence of pneumonia. Forearm X-Ray 08/09/18 18:12 CONCLUSION: No acute bony abnormality. Needle or other metallic fragment present in distal forearm. Assessment and Plan - Assessment (1) Cellulitis of forearm, left Code(s): L03.114 - Cellulitis of left upper limb Status: Acute (2) Chest pain Code(s): R07.9 - Chest pain, unspecified Status: Acute (3) IVDU (intravenous drug user) Code(s): F19.90 - Other psychoactive substance use, unspecified, uncomplicated Status: Acute (4) Rhabdomyolysis Code(s): M62.82 - Rhabdomyolysis Status: Acute (5) Thrombocytopenia Code(s): D69.6 - Thrombocytopenia, unspecified Status: Acute - Plan 1. Cellulitis: LUE. S/p IVDU w/ injection of Cocaine/Heroin 4 days ago, worsening pain/swelling. Forearm X-ray w/ no acute findings, images reviewed. S/p Vanc/Zosyn in ER, will continue w/ IV Abx, follow up cultures. 2. Chest Pain: h/o IVDU, +murmur on exam w/ c/o chest pain, concern for endocarditis. Initial trop negative, will check serial cardiac enzymes to eval for ischemia/strain. Check Echo to eval for vegetations. Transthoracic echo does not show obvious endocarditis 3. Rhabdo: CPK 358, likely related to recent cocaine use, IVF for hydration, check repeat CPK for trend. Continue fluids since patient has not drawn labs 4. Thrombocytopenia: Platelets 114, previously normal on 02/13/2008. Monitor closely for bleeding, repeat labs in am. 5. IVDU: Ongoing, w/ Cocaine/Heroin, pt counselled, Ativan prn for withdrawal/ agitation. 6. DVT Prophylaxis: SCD/Teds Suspected hepatitis C due to IV drug abuse Increased pain control Continue on Ativan and Percocets and morphine for pain echocardiogram--stable does not show any obvious endocarditis transthoracic echo Code Status: Full code Discussed Condition With: RN and patient and case management Discharge Planning: WILL MAKE A FULL ADMIT
[2018-08-11 11:35] LABS: Baso % (Auto) 0.4 % (0.0-2.0); Eos # (Auto) 0.1 th/mm3 (0.0-0.4); Hematocrit 37.3 % (39.0-51.0); Hemoglobin 13.4 gm/dL (13.0-17.0); Lymph # (Auto) 1.2 th/mm3 (1.0-4.8); Lymph % (Auto) 10.6 % (9.0-44.0); Mean Corpuscular HGB Conc 35.9 % (32.0-36.0); Mean Corpuscular Hemoglobin 31.5 pg (27.0-34.0); Mean Corpuscular Volume 87.7 fL (80.0-100.0); Mono # (Auto) 0.6 th/mm3 (0.0-0.9); Mono % (Auto) 5.4 % (0.0-8.0); Neut # (Auto) 9.4 th/mm3 (1.8-7.7); Neut % (Auto) 82.6 % (16.0-70.0); Platelet Count 145 th/mm3 (150-450); Red Blood Count 4.26 mil/mm3 (4.50-5.90); Red Cell Distribution Width 13.3 % (11.6-17.2); White Blood Count 11.4 th/mm3 (4.0-11.0)
[2018-08-11 11:52] LABS: Alanine Aminotransferase 35 U/L (12-78); Albumin 2.6 g/dL (3.4-5.0); Anion Gap 5 meq/L (5-15); Aspartate Aminotransferase 20 U/L (15-37); Blood Urea Nitrogen 5 mg/dL (7-18); Calcium 8.1 mg/dL (8.5-10.1); Carbon Dioxide 28.8 meq/L (21.0-32.0); Chloride 106 meq/L (98-107); Glomerular Filtration Rate Greater Than 89 mL/min (>89); Glucose,Random 112 mg/dL (74-106); Potassium 4.2 meq/L (3.5-5.1); Sodium 140 meq/L (136-145)
[2018-08-11 12:03] LABS: Alkaline Phosphatase 53 U/L (45-117); Thyroid Stimulating Hormone 0.993 uIU/mL (0.358-3.740); Total Protein 6.4 g/dL (6.4-8.2); Vancomycin,Trough 3.2 mcg/mL (5.0-10.0)
[2018-08-11 12:59] LABS: Hepatitis A IgM Antibody Nonreactive (Nonreactive); Hepatitits B Surface Antigen Nonreactive (Nonreactive)
[2018-08-12] MEDS: Vancomycin Inj 1,250 MG in Sodium Chlor 0.9% Inj 250 ML IV.SIG SCH (03:10)
[2018-08-12] MEDS: Piperacil/Tazo 4.5 GM Premix 4.5 GM/100 ML BAG IV.SIG SCH (05:45)
[2018-08-12] MEDS: Sodium Chloride 0.9% 2 ML Flush BID IV.FLUSH SCH (08:10)
[2018-08-12] MEDS: Senna/Docusate Sodium 8.6/50 MG Tablet PO SCH (08:13)
[2018-08-12] MEDS: Sod Chloride 0.9% Inj 1,000 ML IV.CONT SCH (09:08)
[2018-08-12 09:46] LABS: Baso # (Auto) 0.1 th/mm3 (0.0-0.2); Baso % (Auto) 0.5 % (0.0-2.0); Eos # (Auto) 0.1 th/mm3 (0.0-0.4); Eos % (Auto) 1.4 % (0.0-4.0); Hematocrit 35.7 % (39.0-51.0); Hemoglobin 13.2 gm/dL (13.0-17.0); Lymph # (Auto) 1.5 th/mm3 (1.0-4.8); Lymph % (Auto) 14.6 % (9.0-44.0); Mean Corpuscular Hemoglobin 31.6 pg (27.0-34.0); Mean Corpuscular Volume 85.1 fL (80.0-100.0); Mean Platelet Volume 10.9 fL (7.0-11.0); Mono # (Auto) 0.5 th/mm3 (0.0-0.9); Mono % (Auto) 5.2 % (0.0-8.0); Neut # (Auto) 7.9 th/mm3 (1.8-7.7); Neut % (Auto) 78.3 % (16.0-70.0); Platelet Count 165 th/mm3 (150-450); Red Blood Count 4.19 mil/mm3 (4.50-5.90); Red Cell Distribution Width 13.2 % (11.6-17.2); White Blood Count 10.1 th/mm3 (4.0-11.0)
[2018-08-12 10:04] LABS: Anion Gap 10 meq/L (5-15); Carbon Dioxide 23.4 meq/L (21.0-32.0); Chloride 106 meq/L (98-107); Potassium 4.3 meq/L (3.5-5.1); Sodium 139 meq/L (136-145)
[2018-08-12 10:05] LABS: Albumin 2.6 g/dL (3.4-5.0); Aspartate Aminotransferase 17 U/L (15-37); Blood Urea Nitrogen 5 mg/dL (7-18); Calcium 8.5 mg/dL (8.5-10.1); Glomerular Filtration Rate Greater Than 89 mL/min (>89); Glucose,Random 92 mg/dL (74-106); Magnesium 2.1 mg/dL (1.5-2.5)
[2018-08-12 10:06] LABS: Alanine Aminotransferase 30 U/L (12-78); Phosphorus 3.5 mg/dL (2.5-4.9)
[2018-08-12 10:08] LABS: Alkaline Phosphatase 52 U/L (45-117); Total Protein 6.5 g/dL (6.4-8.2)
[2018-08-12 10:12] LABS: Mean Corpuscular HGB Conc 37.1 % (32.0-36.0)
--- NOTE | 2018-08-12 10:34 | P.PNIM ---
Subjective Interval history: This is a 27-year-old male with a PMH of Hepatitis C, Tobacco Abuse and IVDU who presented to the ER with complaints of left arm pain and swelling x4 days. States he injected Cocaine and Heroin to [facility] 4 days ago and thinks he missed the vein. Notes progressive pain, redness and swelling. Pain is constant, moderate to severe, 8/10, non-radiating. Also notes fever/chills and c/o chest pain-substernal, sharp, non-radiating. On arrival, 33/68, HR 93, O2 RA, Temp 102.8. CBC essentially unremarkable except for platelets 114. INR 1.1. Chemistry unremarkable. Lactic acid 0.8. Troponin negative. CPK 358. CXR with no acute findings. Forearm X-ray no acute finding, no needle or metallic fragment present. S/p Vanc/Zosyn in ER. 11-2 COMPLAINS OF PAIN ALL OVER DW RN AND PT AND CM NEEDS ECHO AM LABS Adjust pain medications Pharmacy to help regarding the vancomycin dosing Echo is pending Pain control and withdrawal medication 11-3 REFUSED LABS PULLED OUT IV NEEDS NEW IV AND ANTIBIOTICS ECHO WAS STABLE AM LABS CONTINUE SAME I need the patient's labs to be able to make decisions as to what is improving or not and he has refused those so once we get those we can make more determination as to a course of action 11-4 WANTS TO GO HOME GREW STAPH THAT IS PANSENSITIVE CAN DC TO HOME ON PEN VK WANTS TO GO HOME DW RN AND PT AND CM Physical Exam Vital signs: Vital Signs 08/11/18 11:41 08/11/18 16:00 08/11/18 20:00 Temperature 98.7 F Pulse Rate 67 60 75 Respiratory Rate 16 16 18 Blood Pressure 115/62 121/66 107/58 L Pulse Oximetry 100 100 100 08/12/18 08:02 Temperature 98.3 F Pulse Rate 62 Respiratory Rate 18 Blood Pressure 110/61 Pulse Oximetry 100 Intake & Output 08/11/18 08/12/18 08/12/18 19:59 06:59 18:59 Intake Total 900 / 900 Output Total Balance 900 / 900 Intake: IV 900 / 900 NS Inj 1,000 ML @ 100 mls/hr IV 800 / 800 .CONT .Q10H [facility] Rx#:[id number] Zosyn 4.5 GM Premix 4.5 gm In 100 / 100 100 ml @ 200 mls/hr IV.SIG Q6H [facility] Rx#:[id number] Vancomycin Inj 1,250 MG In NS Inj 250 ML @ 250 mls/hr IV.SIG Q8H [facility] Rx#:[id number] Oral Output: Urine Other: # Voids 1 Date of Last Bowel Movement # Emeses Narrative: PE: GENERAL: Young white male in no acute distress. Multiple tattoos on body SKIN: Focused skin assessment warm and dry. Multiple track hatfield on arms HEENT: PERRLA, EOMI. No scleral icterus or conjunctival pallor. No lid lag or facial droop. CARDIOVASCULAR: Regular rate and rhythm. +holosystolic murmur. No chest tenderness to palpation. RESPIRATORY: No obvious rhonchi or wheezing. Clear to auscultation. Breath sounds equal bilaterally. GASTROINTESTINAL: Abdomen soft, non-tender, nondistended. BS normal. MUSCULOSKELETAL: Extremities without clubbing, cyanosis, or edema. No obvious deformities. Left forearm w/ multiple scabs, +erythema/edema, +tenderness to palpation. NEUROLOGICAL: Awake, alert and oriented x4. No focal neurologic deficits. Moving both upper and lower extremities spontaneously. PSYCHIATRIC: Appropriate mood and affect. Insight and judgment normal. Results - Labs CBC & Chem 7: 08/12/18 08:20 08/12/18 08:20 Laboratory Results - last 24 hr 08/11/18 08/11/18 08/11/18 11:06 11:06 11:06 WBC 11.4 H RBC 4.26 L Hgb 13.4 Hct 37.3 L MCV 87.7 MCH 31.5 MCHC 35.9 RDW 13.3 Plt Count 145 L MPV 10.0 Prelim Diff (Auto) Neut % (Auto) 82.6 H Lymph % (Auto) 10.6 [place] % (Auto) 5.4 Eos % (Auto) 1.0 Baso % (Auto) 0.4 Neut # (Auto) 9.4 H Lymph # (Auto) 1.2 [place] # (Auto) 0.6 Eos # (Auto) 0.1 Baso # (Auto) 0.0 WBC Differential . Differential Comment Auto diff final Sodium 140 Potassium 4.2 Chloride 106 Carbon Dioxide 28.8 Anion Gap 5 BUN 5 L Creatinine 0.66 Estimated GFR Greater than 89 Random Glucose 112 H Calcium 8.1 L Phosphorus 3.0 Magnesium 2.0 Total Bilirubin 1.2 H AST 20 ALT 35 Alkaline Phosphatase 53 Total Protein 6.4 D Albumin 2.6 L TSH 0.993 Free T4 Vancomycin Trough 3.2 L Hepatitis A IgM Ab Nonreactive Hep Bs Antigen Nonreactive Hep B Core IgM Ab Nonreactive Hep C IgG Ab Reactive H 08/11/18 08/12/18 08/12/18 11:06 08:20 08:20 WBC 10.1 RBC 4.19 L Hgb 13.2 Hct 35.7 L MCV 85.1 MCH 31.6 MCHC 37.1 H RDW 13.2 Plt Count 165 MPV 10.9 Prelim Diff (Auto) Slide review pending Neut % (Auto) 78.3 H Lymph % (Auto) 14.6 [place] % (Auto) 5.2 Eos % (Auto) 1.4 Baso % (Auto) 0.5 Neut # (Auto) 7.9 H Lymph # (Auto) 1.5 [place] # (Auto) 0.5 Eos # (Auto) 0.1 Baso # (Auto) 0.1 WBC Differential Differential Comment . Sodium 139 Potassium 4.3 Chloride 106 Carbon Dioxide 23.4 Anion Gap 10 BUN 5 L Creatinine 0.72 Estimated GFR Greater than 89 Random Glucose 92 Calcium 8.5 Phosphorus 3.5 Magnesium 2.1 Total Bilirubin 1.0 AST 17 ALT 30 Alkaline Phosphatase 52 Total Protein 6.5 Albumin 2.6 L TSH Free T4 1.19 Vancomycin Trough Hepatitis A IgM Ab Hep Bs Antigen Hep B Core IgM Ab Hep C IgG Ab Microbiology 08/09/18 18:27 Blood - Peripheral Aerobic Blood Culture - Preliminary No growth in 2 days 08/09/18 18:27 Blood - Peripheral Anaerobic Blood Culture - Final Staphylococcus aureus 08/09/18 18:27 Blood - Peripheral Aerobic Blood Culture - Preliminary gram positive cocci 08/09/18 18:27 Blood - Peripheral Anaerobic Blood Culture - Preliminary No growth in 2 days - Imaging ITS Impressions Chest X-Ray 08/09/18 18:08 CONCLUSION: No acute cardiopulmonary disease. There is no evidence of pneumonia. Forearm X-Ray 08/09/18 18:12 CONCLUSION: No acute bony abnormality. Needle or other metallic fragment present in distal forearm. - Procedures NONE Assessment and Plan - Assessment (1) Cellulitis of forearm, left Code(s): L03.114 - Cellulitis of left upper limb Status: Acute (2) Chest pain Code(s): R07.9 - Chest pain, unspecified Status: Acute (3) IVDU (intravenous drug user) Code(s): F19.90 - Other psychoactive substance use, unspecified, uncomplicated Status: Acute (4) Rhabdomyolysis Code(s): M62.82 - Rhabdomyolysis Status: Acute (5) Thrombocytopenia Code(s): D69.6 - Thrombocytopenia, unspecified Status: Acute - Plan 1. Cellulitis: LUE. S/p IVDU w/ injection of Cocaine/Heroin 4 days ago, worsening pain/swelling. Forearm X-ray w/ no acute findings, images reviewed. S/p Vanc/Zosyn in ER, will continue w/ IV Abx, follow up cultures. GROWING MSSA SWITCH TO PEN VK AND DC TO HOME WILL NEED LONGER COURSE 2. Chest Pain: h/o IVDU, +murmur on exam w/ c/o chest pain, concern for endocarditis. Initial trop negative, will check serial cardiac enzymes to eval for ischemia/strain. Check Echo to eval for vegetations. Transthoracic echo does not show obvious endocarditis- NO ENDOCARDITIS ON ECHO- NO MORE FEVERS 3. Rhabdo: CPK 358, likely related to recent cocaine use, IVF for hydration, check repeat CPK for trend. Continue fluids since patient has not drawn labs 4. Thrombocytopenia: Platelets 114, previously normal on 02/13/2008. Monitor closely for bleeding, repeat labs in am. 5. IVDU: Ongoing, w/ Cocaine/Heroin, pt counselled, Ativan prn for withdrawal/ agitation. 6. DVT Prophylaxis: SCD/Teds POSITIVE hepatitis C due to IV drug abuse Increased pain control SWITCH TO PO MEDS AND DC TO HOME TODAY echocardiogram--stable does not show any obvious endocarditis transthoracic echo Code Status: FULL CODE Discussed Condition With: DC TO HOME TODAY Discharge Planning: SWITCH TO PO MEDS AND DC TO HOME NEEDS TO NOT DO ANY IVDU ANYMORE
--- NOTE | 2018-08-12 10:45 | P.DS ---
Date of admission: 08/10/18 11:42 Primary care physician: No Primary Care Physician Attending physician on discharge: Derrick Sevilla Anticipated date of discharge: 08/12/18 Brief History from admission: This is a 27-year-old male with a PMH of Hepatitis C, Tobacco Abuse and IVDU who presented to the ER with complaints of left arm pain and swelling x4 days. States he injected Cocaine and Heroin to [facility] 4 days ago and thinks he missed the vein. Notes progressive pain, redness and swelling. Pain is constant, moderate to severe, 8/10, non-radiating. Also notes fever/chills and c/o chest pain-substernal, sharp, non-radiating. On arrival, 33/68, HR 93, O2 RA, Temp 102.8. CBC essentially unremarkable except for platelets 114. INR 1.1. Chemistry unremarkable. Lactic acid 0.8. Troponin negative. CPK 358. CXR with no acute findings. Forearm X-ray no acute finding, no needle or metallic fragment present. S/p Vanc/Zosyn in ER. Patient update on day of discharge: This is a 27-year-old male with a PMH of Hepatitis C, Tobacco Abuse and IVDU who presented to the ER with complaints of left arm pain and swelling x4 days. States he injected Cocaine and Heroin to [facility]UE 4 days ago and thinks he missed the vein. Notes progressive pain, redness and swelling. Pain is constant, moderate to severe, 8/10, non-radiating. Also notes fever/chills and c/o chest pain-substernal, sharp, non-radiating. On arrival, 33/68, HR 93, O2 RA, Temp 102.8. CBC essentially unremarkable except for platelets 114. INR 1.1. Chemistry unremarkable. Lactic acid 0.8. Troponin negative. CPK 358. CXR with no acute findings. Forearm X-ray no acute finding, no needle or metallic fragment present. S/p Vanc/Zosyn in ER. 11-2 COMPLAINS OF PAIN ALL OVER DW RN AND PT AND CM NEEDS ECHO AM LABS Adjust pain medications Pharmacy to help regarding the vancomycin dosing Echo is pending Pain control and withdrawal medication 11-3 REFUSED LABS PULLED OUT IV NEEDS NEW IV AND ANTIBIOTICS ECHO WAS STABLE AM LABS CONTINUE SAME I need the patient's labs to be able to make decisions as to what is improving or not and he has refused those so once we get those we can make more determination as to a course of action 11-4 WANTS TO GO HOME GREW MARIUM THAT IS PANSENSITIVE CAN DC TO HOME ON PEN VK WANTS TO GO HOME DW RN AND PT AND CM DS: Diagnosis - Discharge Diagnosis (1) Cellulitis of forearm, left Status: Acute (2) Chest pain Status: Acute (3) IVDU (intravenous drug user) Status: Chronic (4) Rhabdomyolysis Status: Acute (5) Thrombocytopenia Status: Chronic (6) Hepatitis C Status: Chronic (7) Polysubstance abuse Status: Chronic DS: Medications - Discharge Medications Prescriptions: Lactobacillus acidoph-L.bulgar [Lactinex] 1 tab PO TID #90 tab nicotine 1 patch TRANSDERMAL DAILY #30 ea oxycodone 10 mg PO Q4H PRN #18 tab PRN Reason: Pain penicillin V potassium 500 mg PO QID #84 tab DS: Summary Hospital Course: This is a 27-year-old male with a PMH of Hepatitis C, Tobacco Abuse and IVDU who presented to the ER with complaints of left arm pain and swelling x4 days. States he injected Cocaine and Heroin to [facility] 4 days ago and thinks he missed the vein. Notes progressive pain, redness and swelling. Pain is constant, moderate to severe, 8/10, non-radiating. Also notes fever/chills and c/o chest pain-substernal, sharp, non-radiating. On arrival, 33/68, HR 93, O2 RA, Temp 102.8. CBC essentially unremarkable except for platelets 114. INR 1.1. Chemistry unremarkable. Lactic acid 0.8. Troponin negative. CPK 358. CXR with no acute findings. Forearm X-ray no acute finding, no needle or metallic fragment present. S/p Vanc/Zosyn in ER. 11-2 COMPLAINS OF PAIN ALL OVER DW RN AND PT AND CM NEEDS ECHO AM LABS Adjust pain medications Pharmacy to help regarding the vancomycin dosing Echo is pending Pain control and withdrawal medication 11-3 REFUSED LABS PULLED OUT IV NEEDS NEW IV AND ANTIBIOTICS ECHO WAS STABLE AM LABS CONTINUE SAME I need the patient's labs to be able to make decisions as to what is improving or not and he has refused those so once we get those we can make more determination as to a course of action 11-4 WANTS TO GO HOME CRUZ CAUSEY THAT IS PANSENSITIVE CAN DC TO HOME ON PEN VK WANTS TO GO HOME DW RN AND PT AND CM E-FORE Prescription Drug Monitoring Database has been queried and verified prior to prescribing the controlled substance. Acute pain exception. This patient has normal, predicted, physiological, and time limited response to an adverse mechanical stimulus associated with surgery, trauma, or acute illness as described in my notes. There is a lack of alternative treatment options other than to include the prescribed narcotic treatment for this condition. will give rx for pain meds - Time Spent with Patient Total time spent providing and/or coordinating discharge services: Greater than 30 minutes - Quality: VTE Deep Vein Thrombosis/Pulmonary Embolism Present on Admission: No Exam Vital signs: Vital Signs 08/11/18 11:41 08/11/18 16:00 08/11/18 20:00 Temperature 98.7 F Pulse Rate 67 60 75 Respiratory Rate 16 16 18 Blood Pressure 115/62 121/66 107/58 L Pulse Oximetry 100 100 100 08/12/18 08:02 Temperature 98.3 F Pulse Rate 62 Respiratory Rate 18 Blood Pressure 110/61 Pulse Oximetry 100 Intake & Output 08/11/18 08/12/18 08/12/18 19:59 06:59 18:59 Intake Total 900 / 900 Output Total Balance 900 / 900 Intake: IV 900 / 900 NS Inj 1,000 ML @ 100 mls/hr IV 800 / 800 .CONT .Q10H DUSTIN Rx#:[id number] Zosyn 4.5 GM Premix 4.5 gm In 100 / 100 100 ml @ 200 mls/hr IV.SIG Q6H DUSTIN Rx#:[id number] Vancomycin Inj 1,250 MG In NS Inj 250 ML @ 250 mls/hr IV.SIG Q8H DUSTIN Rx#:[id number] Oral Output: Urine Other: # Voids 1 Date of Last Bowel Movement # Emeses Narrative: PE: GENERAL: Young white male in no acute distress. Multiple tattoos on body SKIN: Focused skin assessment warm and dry. Multiple track hatfield on arms HEENT: PERRLA, EOMI. No scleral icterus or conjunctival pallor. No lid lag or facial droop. CARDIOVASCULAR: Regular rate and rhythm. +holosystolic murmur. No chest tenderness to palpation. RESPIRATORY: No obvious rhonchi or wheezing. Clear to auscultation. Breath sounds equal bilaterally. GASTROINTESTINAL: Abdomen soft, non-tender, nondistended. BS normal. MUSCULOSKELETAL: Extremities without clubbing, cyanosis, or edema. No obvious deformities. Left forearm w/ multiple scabs, +erythema/edema, +tenderness to palpation. NEUROLOGICAL: Awake, alert and oriented x4. No focal neurologic deficits. Moving both upper and lower extremities spontaneously. PSYCHIATRIC: Appropriate mood and affect. Insight and judgment normal. Results Procedures completed during hospitalization: NONE Completed studies during hospitalization: Laboratory Results WBC 10.1 th/mm3 (4.0-11.0) 08/12/18 08:20 RBC 4.19 mil/mm3 (4.50-5.90) L 08/12/18 08:20 Hgb 13.2 gm/dL (13.0-17.0) 08/12/18 08:20 Hct 35.7 % (39.0-51.0) L 08/12/18 08:20 MCV 85.1 fL (80.0-100.0) 08/12/18 08:20 MCH 31.6 pg (27.0-34.0) 08/12/18 08:20 MCHC 37.1 % (32.0-36.0) H 08/12/18 08:20 RDW 13.2 % (11.6-17.2) 08/12/18 08:20 Plt Count 165 th/mm3 (150-450) 08/12/18 08:20 MPV 10.9 fL (7.0-11.0) 08/12/18 08:20 Prelim Diff (Auto) Slide review pending 08/12/18 08:20 Neut % (Auto) 78.3 % (16.0-70.0) H 08/12/18 08:20 Lymph % (Auto) 14.6 % (9.0-44.0) 08/12/18 08:20 [place] % (Auto) 5.2 % (0.0-8.0) 08/12/18 08:20 Eos % (Auto) 1.4 % (0.0-4.0) 08/12/18 08:20 Baso % (Auto) 0.5 % (0.0-2.0) 08/12/18 08:20 Neut # (Auto) 7.9 th/mm3 (1.8-7.7) H 08/12/18 08:20 Lymph # (Auto) 1.5 th/mm3 (1.0-4.8) 08/12/18 08:20 [place] # (Auto) 0.5 th/mm3 (0.0-0.9) 08/12/18 08:20 Eos # (Auto) 0.1 th/mm3 (0.0-0.4) 08/12/18 08:20 Baso # (Auto) 0.1 th/mm3 (0.0-0.2) 08/12/18 08:20 WBC Differential . 08/11/18 11:06 Differential Comment . 08/12/18 08:20 PT 11.4 sec (9.8-11.6) 08/09/18 18:27 INR 1.1 Ratio 08/09/18 18:27 APTT 39.0 sec (23.4-31.7) H 08/09/18 18:27 Sodium 139 meq/L (136-145) 08/12/18 08:20 Potassium 4.3 meq/L (3.5-5.1) 08/12/18 08:20 Chloride 106 meq/L (98-107) 08/12/18 08:20 Carbon Dioxide 23.4 meq/L (21.0-32.0) 08/12/18 08:20 Anion Gap 10 meq/L (5-15) 08/12/18 08:20 BUN 5 mg/dL (7-18) L 08/12/18 08:20 Creatinine 0.72 mg/dL (0.60-1.30) 08/12/18 08:20 Estimated GFR Greater than 89 mL/min (>89) 08/12/18 08:20 Random Glucose 92 mg/dL (74-106) 08/12/18 08:20 Lactic Acid 0.8 mmol/L (0.4-2.0) 08/09/18 18:27 Calcium 8.5 mg/dL (8.5-10.1) 08/12/18 08:20 Phosphorus 3.5 mg/dL (2.5-4.9) 08/12/18 08:20 Magnesium 2.1 mg/dL (1.5-2.5) 08/12/18 08:20 Total Bilirubin 1.0 mg/dL (0.2-1.0) 08/12/18 08:20 AST 17 U/L (15-37) 08/12/18 08:20 ALT 30 U/L (12-78) 08/12/18 08:20 Alkaline Phosphatase 52 U/L (45-117) 08/12/18 08:20 Total Creatine Kinase 191 U/L (39-308) 08/10/18 06:22 CK-MB (CK-2) 1.9 ng/mL (0.5-3.6) 08/09/18 18:27 CK-MB (CK-2) % 0.5 % (0.0-4.0) 08/09/18 18:27 Troponin I Less than 0.02 ng/mL (0.02-0.05) L 08/10/18 06:22 Total Protein 6.5 g/dL (6.4-8.2) 08/12/18 08:20 Albumin 2.6 g/dL (3.4-5.0) L 08/12/18 08:20 TSH 0.993 uIU/mL (0.358-3.740) 08/11/18 11:06 Free T4 1.19 ng/dL (0.76-1.46) 08/11/18 11:06 Urine Color Yellow (Yellw/Straw) 08/09/18 21:50 Urine Clarity Clear (Clear) 08/09/18 21:50 Urine pH 6.0 (5.0-8.5) 08/09/18 21:50 Ur Specific [place] 1.002 (1.002-1.035) 08/09/18 21:50 Urine Protein Negative mg/dL (Neg-Trace) 08/09/18 21:50 Urine Glucose (UA) Negative mg/dL (Negative) 08/09/18 21:50 Urine Ketones Negative mg/dL (Negative) 08/09/18 21:50 Urine Occult Blood Negative (Negative) 08/09/18 21:50 Urine Nitrate Negative (Negative) 08/09/18 21:50 Urine Bilirubin Negative (Negative) 08/09/18 21:50 Urine Urobilinogen 4 or greater mg/dL (Less than 2) 08/09/18 21:50 Ur Leukocyte Esterase Trace (Negative) H 08/09/18 21:50 Urine RBC Less than 1 /hpf (0-3) 08/09/18 21:50 Urine WBC 1 /hpf (0-5) 08/09/18 21:50 Urine Mucus Few /lpf (Occasional) H 08/09/18 21:50 Micro UA Comment Culture not ind 08/09/18 21:50 Ur Microscopic Review Not Reportable 08/09/18 21:50 Urine Culture Comments Culture not ind 08/09/18 21:50 Vancomycin Trough 3.2 mcg/mL (5.0-10.0) L 08/11/18 11:06 Hepatitis A IgM Ab Nonreactive (Nonreactive) 08/11/18 11:06 Hep Bs Antigen Nonreactive (Nonreactive) 08/11/18 11:06 Hep B Core IgM Ab Nonreactive (Nonreactive) 08/11/18 11:06 Hep C IgG Ab Reactive (Nonreactive) H 08/11/18 11:06 Impressions Chest X-Ray 08/09/18 18:08 CONCLUSION: No acute cardiopulmonary disease. There is no evidence of pneumonia. Forearm X-Ray 08/09/18 18:12 CONCLUSION: No acute bony abnormality. Needle or other metallic fragment present in distal forearm. Labs on day of discharge: Labs from last 24 hours 08/12/18 08/12/18 08/11/18 08:20 08:20 11:06 WBC 10.1 RBC 4.19 L Hgb 13.2 Hct 35.7 L MCV 85.1 MCH 31.6 MCHC 37.1 H RDW 13.2 Plt Count 165 MPV 10.9 Prelim Diff (Auto) Slide review pending Neut % (Auto) 78.3 H Lymph % (Auto) 14.6 [place] % (Auto) 5.2 Eos % (Auto) 1.4 Baso % (Auto) 0.5 Neut # (Auto) 7.9 H Lymph # (Auto) 1.5 [place] # (Auto) 0.5 Eos # (Auto) 0.1 Baso # (Auto) 0.1 WBC Differential Pending Differential Comment . Sodium 139 Potassium 4.3 Chloride 106 Carbon Dioxide 23.4 Anion Gap 10 BUN 5 L Creatinine 0.72 Estimated GFR Greater than 89 Random Glucose 92 Calcium 8.5 Phosphorus 3.5 Magnesium 2.1 Total Bilirubin 1.0 AST 17 ALT 30 Alkaline Phosphatase 52 Total Protein 6.5 Albumin 2.6 L TSH Free T4 1.19 Vancomycin Trough Hepatitis A IgM Ab Hep Bs Antigen Hep B Core IgM Ab Hep C IgG Ab 08/11/18 08/11/18 08/11/18 11:06 11:06 11:06 WBC 11.4 H RBC 4.26 L Hgb 13.4 Hct 37.3 L MCV 87.7 MCH 31.5 MCHC 35.9 RDW 13.3 Plt Count 145 L MPV 10.0 Prelim Diff (Auto) Neut % (Auto) 82.6 H Lymph % (Auto) 10.6 [place] % (Auto) 5.4 Eos % (Auto) 1.0 Baso % (Auto) 0.4 Neut # (Auto) 9.4 H Lymph # (Auto) 1.2 [place] # (Auto) 0.6 Eos # (Auto) 0.1 Baso # (Auto) 0.0 WBC Differential . Differential Comment Auto diff final Sodium 140 Potassium 4.2 Chloride 106 Carbon Dioxide 28.8 Anion Gap 5 BUN 5 L Creatinine 0.66 Estimated GFR Greater than 89 Random Glucose 112 H Calcium 8.1 L Phosphorus 3.0 Magnesium 2.0 Total Bilirubin 1.2 H AST 20 ALT 35 Alkaline Phosphatase 53 Total Protein 6.4 D Albumin 2.6 L TSH 0.993 Free T4 Vancomycin Trough 3.2 L Hepatitis A IgM Ab Nonreactive Hep Bs Antigen Nonreactive Hep B Core IgM Ab Nonreactive Hep C IgG Ab Reactive H Preliminary micro results at discharge 08/09/18 18:27 Aerobic Blood Culture - Preliminary Blood - Peripheral No growth in 2 days 08/09/18 18:27 Aerobic Blood Culture - Preliminary Blood - Peripheral gram positive cocci Anaerobic Blood Culture - Preliminary No growth in 2 days - Impressions ITS Impressions Chest X-Ray 08/09/18 18:08 CONCLUSION: No acute cardiopulmonary disease. There is no evidence of pneumonia. Forearm X-Ray 08/09/18 18:12 CONCLUSION: No acute bony abnormality. Needle or other metallic fragment present in distal forearm. Discharge Plan - Discharge Disposition Patient Disposition: Discharge Home - Discharge Condition Condition: Stable - Discharge Order Discharge Orders: Discharge Order (Routine); Ordered 08/12/18 Ordered By: Derrick Sevilla - Discharge Details Anticipated Discharge Date: 08/12/18 Discharge Comment: dc to home - Physicians Team Primary Care Provider: Primary Care Physici,No Attending Provider: Derrick Sevilla
[2018-08-12 11:25] LABS: Lymphocytes 5 % (9-44); Monocytes 3 % (0-8)
[2018-08-12 11:26] LABS: Platelet Estimate Normal (Normal); Platelet Morphology Normal (Normal)
[2018-08-12 12:52] LABS: Hemoglobin A1c 3.6 % (4.3-6.0)
[2018-08-13] MEDS ORDERED: Pharmacy Ordered Lab Info OTHER ONE (03:45)
== END 2018-08-12 11:00 | disposition home or self-care (01) ==
LOC: NEPD 15:11 → NEDH 15:11 → NEPFCDU 21:53
PROVIDERS: ADMIT Hospitalist; ATTEND Hospitalist